=== PATIENT | female | born 1955 | race Caucasian/White ===

== ENCOUNTER 2016-12-12 12:14 | Outpatient (CLI) | payer OTHER ==
[~2016-12-12] VITALS: Ht 171.4 cm; Wt 143.6 kg
[2016-12-12 12:14] VITALS: BP 142/69; PULSE 88; RESP 20; Ht 171.4 cm; Wt 143.6 kg
[2016-12-12] MEDS ORDERED: LEVO200T6 PO (12:32)
[2016-12-12] MEDS ORDERED: LANT3I SC (12:32)
[2016-12-12] MEDS ORDERED: INSU200I SQ (12:32)
[2016-12-12] MEDS ORDERED: LORA0.5T PO (12:32)
[2016-12-12] MEDS ORDERED: HYDR100T7 PO (12:32)
[2016-12-12] MEDS ORDERED: ENAL20TA PO (12:32)
[2016-12-12] MEDS ORDERED: ASPI-664 PO (12:32)
[2016-12-12] MEDS ORDERED: BUSP15TA3 PO (12:32)
[2016-12-12] MEDS ORDERED: NIFE30TA60 PO (12:32)
--- NOTE | 2016-12-12 12:54 | PN ---
Date/Time of Note Date/Time of Note DATE: 12/12/16 TIME: 12:44 Outpatient Progress Note Chief Complaint Sepsis/shortness of breath/hypertension/ASHD/diabetes/hypoglycemia/ obesity/ diabetes/hypothyroidism HPI Sepsis/patient was recently hospitalized, patient has severe leukocytosis, patient had questionable infiltrate in the lungs, and also had UTI, and has slight cellulitis of the legs, patient was prescribed antibiotic, patient did not finish the antibiotic, patient felt bad with antibiotic, Shortness of breath/patient still have slight shortness of breath, especially with exertion, patient has CHF in the hospital, patient not on any diuretics at present, patient has ankle edema, Hypertension/no headache or dizziness, no lightheadedness, no syncope, ASHD, no chest pain, no PND, has shortness of breath on exertion, has ankle edema, Hypoglycemia/patient is diabetic, patient was taking Lantus 30 units twice daily , and also aspart insulin 20 units 3 times a day, patient blood sugar dropped down to 30s and 40s 2 days in a row, Hypothyroidism/patient has hypothyroidism, patient on medication, Review of Systems Const: No Fever, no chills, no Wt. loss, no Fatigue, normal appetite, no diaphoresis. Eyes: No pain, no discharge, no redness, no visual change, no foreign body. ENT: No pain, no bleeding, no congestion, no sore throat, no dysphagia, no discharge or rhinitis. Lymph: No adenopathy, no tender nodes, no lymphedema. Resp: SOB on exertion,, no cough, no sputum, no wheezing, no chest pain. CV: No chest pain, no palpitaions, no KERNS, no PND, bilateral ankle edema. GI: Normal appetite, no pain, no nausea, no vomiting, no diarrhea, no blood, no constipation. : No frequency, no urgency, no dysuria, no hematuria, no flank pain, no discharge, no bleeding. Patient has a poor urine output, Musc: No bone/joint pain, no back pain, no neck pain, no knee pain, no restricted ROM. Skin: No rash, no skin lesions, no erythema, no laceration, no bruising, no pruritus no cellulitis in the legs,. Neuro: No ABDUL, no dizziness, no syncope, no seizure, no focal-weakness. Endo: No polyuria, no polydypsia, no dry-skin, no temp-intolerance. Psych: No hallucinations, no depression, no anxiety, no suicidal ideation. Ext: Bilateral ankle edema, no pain, no ulcer, no weakness. Physical Exam Vital Signs Date Time Temp Pulse Resp B/P Pulse Ox O2 Delivery O2 Flow Rate FiO2 12/12/16 12:14 98.1 88 20 142/69 93 Room Air General Appearance: A 61 year-old female who appears well-developed, well- nourished, in no acute distress. HEENT: Head normocephalic, atraumatic. Pupils equal, round, reactive to light and accommodate. Sclerae are no jaundice. Nasal turbinates pink without erythema or nasal discharge. Mucous membranes pink and moist without lesions. Oropharynx clear without any exudate or discharge. NECK: Supple. Trachea midline, No thyromegaly, No cervical lymphadenopathy, No mass, No carotid bruits, No JVD, Carotid pulses 2+ bilaterally. PULMONARY: Clear to auscultaion bilaterally, No retractions, Chest expansion symmetric bilaterally, no rales, no ronchi, no dulness on percussion. CARDIAC: Normal SI and S2, Regular rate and rythm, no murmur, gallop, or rub. Bilateral ankle edema, GASTROINTESTINAL: Abdomen is soft, non-tender, Non Rigid, No distention, Positive bowel sounds x4 quadrants, Liver normal. SKIN: Warm, dry, no rash, no bruise, no echmosis. EXTREMITIES: Bilateral lower extremities bilateral ankle edema, no phlabitus, pulse palpable, no contracture. MUSCULOSKELETAL: Spine Normal, Non-tender, Normal range of motion, No swelling, no deformity, no clubbing, or cyanosis, the patient has bilateral ankle edema to bilateral lower extremities, dorsalis pedis pulses palpable bilaterally. NEUROLOGIC: The patient is awake, alert, oriented, responding to yes/no questions appropriately, moving all extremities, cranial nerve intact, normal strenght, normal power, normal coordination, normal gait. Allergies Coded Allergies: metformin (Verified Allergy, Unknown, 12/12/16) PMH Diabetes/hypertension/ASHD/pneumonia/CHF/hypothyroidism/UTI/cellulitis/morbid obesity Social Hx No smoking, no drinking, Family Hx Noncontributory Assessment/Plan Impression Sepsis resolving/shortness of breath/CHF/hypertension/ASHD/diabetes/hypoglycemia //hypothyroidism Plan Patient education done about diabetes hypoglycemia, blood pressure and CHF and pneumonia, patient very high risk for repeated admission, patient also very high risk for sudden , Patient was seen in emergency room 2 days after the discharge, patient very likely to be repeated ER visitor, and repeated admission, Patient had a leukocytosis in the hospital, patient is not taking antibiotic, because patient did have slight side effect, or discomfort, will start Levaquin 500 milligrams daily for 7 days, Patient also has bilateral ankle edema, shortness of breath, chest x-ray in the hospital showed congestive heart failure, will start Lasix 40 mg daily, patient does have slight elevation of the potassium in the hospital record, so we will not give potassium supplement, Patient had hypoglycemia twice in a row, blood sugar was 30 and 40, so will reduceshort acting insulin, to 12 units at breakfast lunch and dinner, family to bring blood sugar level, if blood sugar still remains low will reduce long- acting insulin, discussed with the family Patient encouraged to follow with the primary care physician, will see the patient in 1 week, patient very likely may end up in the ER, discussed with the family, if any problem to call us,, CBC CMP and chest x-ray before next visit, Medications Home Meds Reported Medications Lorazepam* (Lorazepam*) 0.5 Mg Tablet, 0.5 MG PO HS Y for ANXIETY, TAB 12/12/16 Nifedipine* (Nifedipine ER*) 30 Mg Tablet.sa, 30 MG PO DAILY, TAB.SA 12/12/16 Hydralazine Hcl* (Hydralazine Hcl*) 100 Mg Tablet, 100 MG PO Q8, #90 TAB 12/12/16 Insulin Glargine* (Lantus*) 100 Unit/Ml Soln, 30 UNIT SC BID, #1 VIAL 12/12/16 Insulin Lispro (Humalog Kwikpen) 200 Unit/1 Ml Insuln.pen, 20 UNIT SQ AC MEALS, EA 12/12/16 Enalapril Maleate* (Enalapril Maleate*) 20 Mg Tablet, 20 MG PO DAILY, TAB 12/12/16 Aspirin (Low Dose Aspirin) 81 Mg Tablet.dr, 81 MG PO DAILY, #30 TAB 12/12/16 Buspirone Hcl* (Buspirone Hcl*) 15 Mg Tablet, 15 MG PO DAILY, TAB 12/12/16 Levothyroxine Sodium* (Levothyroxine Sodium*) 200 Mcg Tablet, 200 MCG PO BEFORE BREAKFAST, #30 TAB 12/12/16 VIRIDIANA ROMERO MD Dec 12, 2016 12:54
== END 2016-12-12 16:21 | disposition home or self-care (01) ==
LOC: DCC 12:14
PROVIDERS: ATTEND Internal Medicine
DX: I50.9 Heart failure, unspecified (principal); I10 Essential (primary) hypertension; E03.9 Hypothyroidism, unspecified; R06.02 Shortness of breath; E11.9 Type 2 diabetes mellitus without complications; A41.9 Sepsis, unspecified organism